=== PATIENT | male | born 1945 | race Caucasian/White ===

== ENCOUNTER 2017-12-02 20:46 | Emergency (ER) | payer MEDICARE ==
[~2017-12-02] VITALS: Ht 170.2 cm; Wt 71.2 kg
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
--- NOTE | 2017-12-02 22:12 | NUR ---
URINE COLLECTED. 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 DR. AMEZQUITA AT BEDSIDE FOR EVAL.
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
--- NOTE | 2017-12-02 23:14 | NUR ---
PT REFUSED V/S CHECK. RISK AND BENEFITS EXPLAINED X3. PT STRONGLY REFUSED AND REMOVED PULSE OX AND BP CUFF.
--- NOTE | 2017-12-03 00:27 | NUR ---
PT AWAKE, RESTING COMFORTABLE, WATCHING TV.
--- NOTE | 2017-12-03 01:00 | NUR ---
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
--- NOTE | 2017-12-03 01:01 | NUR ---
DR. AMEZQUITA AT BEDSIDE FOR EVAL WITH MARIAN GRESHAM
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
[2017-12-03 01:35] VITALS: BP 121/58
== END 2017-12-03 01:35 | disposition home or self-care (01) ==
LOC: ER 20:47
DX: M54.5 Low back pain (principal); I11.0 Hypertensive heart disease with heart failure; I50.9 Heart failure, unspecified; I25.5 Ischemic cardiomyopathy; F32.9 Major depressive disorder, single episode, unspecified; F20.9 Schizophrenia, unspecified; F43.10 Post-traumatic stress disorder, unspecified; E78.5 Hyperlipidemia, unspecified; Z87.11 Personal history of peptic ulcer disease; V89.2XXA Person injured in unspecified motor-vehicle accident, traffic, initial encounter; Y93.89 Activity, other specified; Y92.413 State road as the place of occurrence of the external cause; Y99.8 Other external cause status
CPT/HCPCS: A4606; Z7610